=== PATIENT | female | born 1950 | race Caucasian/White ===

== ENCOUNTER 2019-05-16 10:30 | Emergency (ER) | payer MEDICARE, OTHER ==
[2019-05-16] MEDS ORDERED: NORMAL SALINE 1000 ML 1,000 ML IV ONE ×2 (11:39→12:23)
[2019-05-16] MEDS ORDERED: ONDANSETRON HCL INJ/PF 4 MG/2 ML SDV IV ONE (11:41)
--- NOTE | 2019-05-16 11:41 | ER Document Report ---
ED Medical Screen (RME) - General Chief Complaint: High Blood Sugar Stated Complaint: ABNORMAL LABS Time Seen by Provider: 05/16/19 11:38 Primary Care Provider: IMAN STARKS MD [Primary Care Provider] - Follow up as needed Notes: 69-year-old female with [id number] diabetes mellitus sent over to the emergency department after getting called by her primary doctor for abnormal labs. Patient states that her sugars were greatly elevated, had electrolyte derangements, and kidney dysfunction. Patient currently complains of polydipsia and polyuria, complains of nausea, but complains of generalized abdominal pain. Exam: Well-appearing in no acute distress, bowel sounds heard, abdomen is soft with diffuse tenderness to palpation. I have greeted and performed a rapid initial assessment of this patient. A comprehensive ED assessment and evaluation of the patient, analysis of test results and completion of medical decision making process will be conducted by an additional ED providers. TRAVEL OUTSIDE OF THE [place] IN LAST 30 DAYS: No - Related Data Allergies/Adverse Reactions: No Known Allergies Allergy (Unverified 07/12/14 13:36) Past Medical History - Past Medical History Cardiac Medical History: Reports: Hx Hypertension - CONTROLLED Denies: Hx Heart Attack Pulmonary Medical History: Denies: Hx Asthma Neurological Medical History: Denies: Hx Cerebrovascular Accident, Hx Seizures GI Medical History: Denies: Hx Hepatitis, Hx Hiatal Hernia, Hx Ulcer Infectious Medical History: Denies: Hx Hepatitis Past Surgical History: Reports: Hx Hysterectomy. Denies: Hx Mastectomy, Hx Open Heart Surgery, Hx Pacemaker Physical Exam - Vital signs Vitals: Resp BP Pulse Ox 21 H 147/62 H 97 05/16/19 10:47 05/16/19 10:47 05/16/19 10:47 Course - Vital Signs Vital signs: Temp Pulse Resp BP Pulse Ox 20 137/56 H 95 05/16/19 11:01 05/16/19 11:01 05/16/19 11:01 Doctor's Discharge - Discharge Referrals: IMAN STARKS MD [Primary Care Provider] - Follow up as needed
[2019-05-16 12:14] LABS: ABSOLUTE EOSINOPHILS # (AUTO) 0.1 10^3/uL (0.0-0.6); ABSOLUTE LYMPHOCYTES (AUTO) 1.3 10^3/uL (0.5-4.7); ABSOLUTE MONOCYTES (AUTO) 0.8 10^3/uL (0.1-1.4); BASOPHILS % (AUTO) 0.3 % (0-2); EOSINOPHILS % (AUTO) 1.1 % (0-6); HEMATOCRIT 37.5 % (36.0-47.0); HEMOGLOBIN 12.6 g/dL (12.0-15.5); LYMPHOCYTES % (AUTO) 18.6 % (13-45); MEAN CORPUSCULAR HEMOGLOBIN 29.8 pg (27.0-33.4); MEAN CORPUSCULAR HGB CONC 33.8 g/dL (32.0-36.0); MEAN CORPUSCULAR VOLUME 88 fl (80-97); MONOCYTES % (AUTO) 10.8 % (3-13); PLATELET COUNT 231 10^3/uL (150-450); RED BLOOD COUNT 4.24 10^6/uL (3.72-5.28); RED CELL DISTRIBUTION WIDTH 13.8 % (11.5-14.0); SEGMENTED NEUTROPHILS % (AUTO) 69.2 % (42-78); TOTAL CELLS COUNTED % (AUTO) 100 %; WHITE BLOOD COUNT 7.1 10^3/uL (4.0-10.5)
[2019-05-16 12:27] LABS: APPEARANCE,URINE CLOUDY; BILIRUBIN,URINE NEGATIVE (NEGATIVE); COLOR,URINE YELLOW; GLUCOSE, URINE >=500 mg/dL (NEGATIVE); KETONES,URINE NEGATIVE (NEGATIVE); LEUKOCYTE ESTERASE,URINE NEGATIVE (NEGATIVE); NITRITE,URINE NEGATIVE (NEGATIVE); PROTEIN,URINE NEGATIVE (NEGATIVE); URINE SPECIFIC GRAVITY 1.025; UROBILINOGEN,URINE NEGATIVE mg/dL (<2.0)
--- NOTE | 2019-05-16 12:27 | ER Document Report ---
ED General - General Chief Complaint: High Blood Sugar Stated Complaint: ABNORMAL LABS Time Seen by Provider: 05/16/19 11:38 Primary Care Provider: IMAN STARKS MD [Primary Care Provider] - Follow up as needed TRAVEL OUTSIDE OF THE [place] IN LAST 30 DAYS: No - HPI Notes: Patient is a 69-year-old female with history of hypertension, type 2 diabetes, depression, fibromyalgia, back pain who presents per the direction of her family doctor for having a glucose over 600 yesterday and some other electrolyte abnormalities. Patient states that she has had excessive thirst and urinary f requency recently. She has been having issues with her sugars for the past month. She otherwise has been eating and drinking without difficulty, but does have decreased p.o. intake. She does have occasional nausea. She is otherwise having normal bowel movements. Patient states that on occasion she will notice some abdominal cramping, but none currently. Denies drug allergies. Denies any headache, fever, neck pain, changes in vision/speech/mentation/hearing, URI, sore throat, chest pain, palpitations, syncope, cough, shortness of breath, wheeze, dyspnea, abdominal pain, vomiting/diarrhea, urinary retention, dysuria, hematuria, numbness/tingling, saddle anesthesia, muscle paralysis/weakness, or rash. - Related Data Allergies/Adverse Reactions: No Known Allergies Allergy (Unverified 07/12/14 13:36) Past Medical History - Social History Smoking Status: Never Smoker Family History: Reviewed & Not Pertinent Patient has suicidal ideation: No Patient has homicidal ideation: No - Past Medical History Cardiac Medical History: Reports: Hx Hypertension - CONTROLLED Denies: Hx Heart Attack Pulmonary Medical History: Denies: Hx Asthma Neurological Medical History: Denies: Hx Cerebrovascular Accident, Hx Seizures GI Medical History: Denies: Hx Hepatitis, Hx Hiatal Hernia, Hx Ulcer Infectious Medical History: Denies: Hx Hepatitis Past Surgical History: Reports: Hx Hysterectomy. Denies: Hx Mastectomy, Hx Open Heart Surgery, Hx Pacemaker Review of Systems - Review of Systems -: Yes All other systems reviewed and negative Physical Exam - Vital signs Vitals: Resp BP Pulse Ox 21 H 147/62 H 97 05/16/19 10:47 05/16/19 10:47 05/16/19 10:47 - Notes Notes: PHYSICAL EXAMINATION: GENERAL: Well-appearing, well-nourished and in no acute distress. A&Ox4. Answers questions appropriately. HEAD: Atraumatic, normocephalic. EYES: Pupils equal round and reactive to light, extraocular movements intact, sclera anicteric, conjunctiva are normal. ENT: Nares patent and without discharge. oropharynx clear without exudates. No tonsilar hypertrophy or erythema. Moist mucous membranes. NECK: Normal range of motion, supple without lymphadenopathy LUNGS: Breath sounds clear to auscultation bilaterally and equal. No wheezes rales or rhonchi. HEART: Regular rate and rhythm without murmurs, rubs, gallops. ABDOMEN: Soft, nontender, nondistended abdomen. No guarding, no rebound. Normal bowel sounds present. No CVA tenderness bilaterally. Musculoskeletal: FROM to passive/active. Strength 5+/5. Extremities: No cyanosis, clubbing, or edema b/l. Peripheral pulses 2+. Capillary refill less than 3 seconds. NEUROLOGICAL: Cranial nerves grossly intact. Normal speech. PSYCH: Normal mood, normal affect. SKIN: Warm, Dry, normal turgor, no rashes or lesions noted. Course - Re-evaluation Re-evalutation: 05/16/19 15:35 Patient is an afebrile, well-hydrated, 69-year-old female who presents with elevated glucose and yeast in her urine. Vitals are currently acceptable without significant tachycardia, tachypnea, or hypoxia. PE is otherwise unremarkable. Patient is nontoxic-appearing and is tolerating p.o. without difficulty. Abdomen is soft and nontender throughout. Patient has been given fluids as well as insulin through her IV. Patient states that she is feeling much better. Labs otherwise unremarkable. Patient has been taking metformin 500 mg once daily. Reviewed with patient that we will need to increase this to twice daily which may also need to be increased by her family doctor thereafter if warranted. No further work-up warranted at this time. Low suspicion/risk for HHS, DKA, acute appendicitis, bowel obstruction, acute cholecystitis, acute cholangitis, perforated diverticulitis, incarcerated hernia, pancreatitis, perforated ulcer, peritonitis, sepsis, pelvic inflammatory disease, or other systemic emergent condition at this time. Patient is aware that her condition can change from initial presentation and she needs to monitor symptoms closely and seek medical attention if any acute changes. Conservative measures otherwis e for symptoms. Recheck with your PCM in 2-3 days. Return to the ED with any worsening/concerning symptoms otherwise as reviewed in discharge. Patient is in agreement. - Vital Signs Vital signs: Temp Pulse Resp BP Pulse Ox 98.1 F 18 148/74 H 97 05/16/19 13:09 05/16/19 12:01 05/16/19 12:01 05/16/19 12:01 - Laboratory Result Diagrams: 05/16/19 11:13 05/16/19 11:13 Laboratory results interpreted by me: 05/16/19 05/16/19 05/16/19 11:00 11:13 11:55 Sodium 130.1 L Chloride 92 L Glucose 670 H* POC Glucose > 550 H* Total Bilirubin 1.7 H Alkaline Phosphatase 165 H Urine Glucose (UA) >=500 H 05/16/19 13:59 Sodium Chloride Glucose POC Glucose 410 H* Total Bilirubin Alkaline Phosphatase Urine Glucose (UA) Discharge - Discharge Clinical Impression: Elevated glucose, Yeast UTI Condition: Stable Disposition: HOME, SELF-CARE Additional Instructions: Maintain adequate fluid and food intake Take home medications as directed and increase your Metformin to 500mg every 12 hours. Low carb/glucose diet Exercise regularly Weight control Monitor blood glucose daily and keep a log Monitor symptoms for any acute changes Recheck with your PCM in 2-3 days Return to the ED with any worsening symptoms and/or development of fever, headache, chest pain, palpitations, syncope, shortness of breath, trouble breathing, abdominal pain, n/v/d, blood in stool/urine, loss of control of bowel/bladder, urinary retention, muscle weakness/paralysis, numbness/tingling, or other worsening symptoms that are concerning to you. Forms: Elevated Blood Pressure Referrals: IMAN STARKS MD [Primary Care Provider] - 05/18/19
[2019-05-16 12:30] LABS: ALKALINE PHOSPHATASE 165 U/L (38-126); ANION GAP 15 (5-19); ASPARTATE AMINO TRANSFERASE 31 U/L (14-36); BILIRUBIN,DIRECT 0.4 mg/dL (0.0-0.4); BILIRUBIN,TOTAL 1.7 mg/dL (0.2-1.3); BLOOD UREA NITROGEN 18 mg/dL (7-20); CALCIUM 9.2 mg/dL (8.4-10.2); CARBON DIOXIDE 23 mmol/L (22-30); CHLORIDE 92 mmol/L (98-107); POTASSIUM 4.4 mmol/L (3.6-5.0)
[2019-05-16 12:50] LABS: GLUCOSE 670 mg/dL (75-110)
[2019-05-16] MEDS ORDERED: FLUCONAZOLE 100 MG TABLET PO ONE (13:00)
[2019-05-16] MEDS ORDERED: INSULIN REG, HUMAN 100 UNIT/ML 3 ML VIAL (PYX) IV ONE ×2 (13:00→14:00)
[2019-05-16 13:19] LABS: VENOUS BLOOD BASE EXCESS 0.9 mmol/L; VENOUS BLOOD HCO3 28.1 mmol/L (20-32); VENOUS BLOOD PCO2 56.1 mmHg (35-63); VENOUS BLOOD PH 7.32 (7.30-7.42)
[2019-05-16] MEDS ORDERED: NORMAL SALINE 500 ML IV ONE (14:00)
[2019-05-16 15:36] VITALS: BP 140/64
--- NOTE | 2019-05-16 23:30 | EKG REPORT ---
SEVERITY:- ABNORMAL ECG - SINUS RHYTHM NONSPECIFIC INTRAVENTRICULAR CONDUCTION DELAY : Confirmed by: Maggie Tobin MD 16-May-2019 23:29:35
== END 2019-05-16 15:56 | disposition home or self-care (01) ==
LOC: ER 10:30
DX: E11.65 Type 2 diabetes mellitus with hyperglycemia (principal); B37.49 Other urogenital candidiasis; R63.0 Anorexia; I10 Essential (primary) hypertension
CPT/HCPCS: 93005; 36415; 82962; 83690; 85025; 80053; 81001; 82803; 93010; A9270 ×2; J2405; J7030; J7040; J1815